=== PATIENT | male | born 1975 | race Two or more races ===

== ENCOUNTER 2019-05-03 08:13 | Emergency (ER) | payer OTHER ==
[~2019-05-03] VITALS: Ht 180.3 cm; Wt 140.6 kg
--- NOTE | 2019-05-03 09:04 | PHYS DOC ---
Past Medical History Past Medical History: Asthma, Diabetes-Type II, Hypertension, Renal Failure Adult General Chief Complaint Chief Complaint: DIALYSIS PROBLEM HPI HPI Patient is a 44 year old guarded male inmate with history of diabetes type 2, hypertension, asthma, end-stage kidney disease on dialysis Tuesday, , Tuesday last dialyzed on Tuesday who presents to the ED today complaining his dialysis catheter is not working, patient states they were getting ready to do h is dialysis today when they noted his catheter was not working. He has had the catheter 3 months. He states his potassium was 7.0 on Tuesday before he was dialyzed on Tuesday last week. Patient denies any other complaints. Review of Systems Review of Systems Constitutional: Denies fever or chills [] Eyes: Denies change in visual acuity, redness, or eye pain [] HENT: Denies nasal congestion or sore throat [] Respiratory: Denies cough or shortness of breath [] Cardiovascular: No additional information not addressed in HPI [] GI: Denies abdominal pain, nausea, vomiting, bloody stools or diarrhea [] : Denies dysuria or hematuria [] Musculoskeletal: Denies back pain or joint pain [] Integument: Denies rash or skin lesions [] Neurologic: Denies headache, focal weakness or sensory changes [] Endocrine: End-stage renal disease, dialysis catheter not working All other systems were reviewed and found to be within normal limits, except as documented in this note. Current Medications Current Medications Current Medications Medications (Trade) Dose Ordered Sig/Elena Start Time Stop Time Status Last Admin Dose Admin Calcium Gluconate (Calcium Gluconate) 1,000 mg 1X ONCE 05/03/19 10:45 05/03/19 10:46 DC 05/03/19 11:03 1,000 MG Dextrose (Dextrose 50%-Water Syringe) 25 gm 1X ONCE 05/03/19 10:45 05/03/19 10:46 DC 05/03/19 11:04 25 GM Insulin Human Regular (HumuLIN R VIAL) 10 unit 1X ONCE 05/03/19 10:45 05/03/19 10:46 DC 05/03/19 11:05 10 UNIT Sodium Bicarbonate (Sodium Bicarb Adult 8.4% Syr) 50 meq 1X ONCE 05/03/19 10:45 05/03/19 10:46 DC 05/03/19 11:04 50 MEQ Allergies Allergies Allergies Coded Allergies Type Severity Reaction Last Updated Verified No Known Drug Allergies 05/03/19 No Physical Exam Physical Exam Constitutional: Well developed, well nourished, no acute distress, non-toxic appearance. [] HENT: Normocephalic, atraumatic, bilateral external ears normal, oropharynx moist, no oral exudates, nose normal. [] Eyes: PERRLA, EOMI, conjunctiva normal, no discharge. [] Neck: Normal range of motion, no tenderness, supple, no stridor. [] Cardiovascular:Heart rate regular rhythm, no murmur [] Right upper chest with the dialysis catheter. No signs of infection around the catheter site. Lungs & Thorax: Bilateral breath sounds clear to auscultation [] Abdomen: Bowel sounds normal, soft, no tenderness, no masses, no pulsatile masses. [] Skin: Warm, dry, no erythema, no rash. [] Back: No tenderness, no CVA tenderness. [] Extremities: No tenderness, no cyanosis, no clubbing, ROM intact, no edema. [] Neurologic: Alert and oriented X 3, normal motor function, normal sensory function, no focal deficits noted. [] Psychologic: Affect normal, judgement normal, mood normal. [] Current Patient Data Vital Signs Vital Signs Date Time Temp Pulse Resp B/P (MAP) Pulse Ox O2 Delivery O2 Flow Rate FiO2 05/03/19 08:52 97.5 90 20 199/105 (136) 98 Room Air 97.5 Lab Values Laboratory Tests Test 05/03/19 09:25 White Blood Count 6.7 x10^3/uL (4.0-11.0) Red Blood Count 4.12 x10^6/uL (4.30-5.70) L Hemoglobin 10.4 g/dL (13.0-17.5) L Hematocrit 32.3 % (39.0-53.0) L Mean Corpuscular Volume 78 fL (79-100) L Mean Corpuscular Hemoglobin 25 pg (25-35) Mean Corpuscular Hemoglobin Concent 32 g/dL (31-37) Red Cell Distribution Width 18.3 % (11.5-14.5) H Platelet Count 239 x10^3/uL (140-400) Neutrophils (%) (Auto) 65 % (31-73) Lymphocytes (%) (Auto) 22 % (24-48) L Monocytes (%) (Auto) 10 % (0-9) H Eosinophils (%) (Auto) 3 % (0-3) Basophils (%) (Auto) 1 % (0-3) Neutrophils # (Auto) 4.3 x10^3/uL (1.8-7.7) Lymphocytes # (Auto) 1.4 x10^3/uL (1.0-4.8) Monocytes # (Auto) 0.6 x10^3/uL (0.0-1.1) Eosinophils # (Auto) 0.2 x10^3/uL (0.0-0.7) Basophils # (Auto) 0.1 x10^3/uL (0.0-0.2) Sodium Level 142 mmol/L (136-145) Potassium Level 6.8 mmol/L (3.5-5.1) *H Chloride Level 105 mmol/L (98-107) Carbon Dioxide Level 25 mmol/L (21-32) Anion Gap 12 (6-14) Blood Urea Nitrogen 87 mg/dL (8-26) H Creatinine 9.7 mg/dL (0.7-1.3) H Estimated GFR (Cockcroft-Gault) 5.9 BUN/Creatinine Ratio 9 (6-20) Glucose Level 100 mg/dL (70-99) H Calcium Level 8.5 mg/dL (8.5-10.1) Total Bilirubin 0.3 mg/dL (0.2-1.0) Aspartate Amino Transferase (AST) 14 U/L (15-37) L Alanine Aminotransferase (ALT) 23 U/L (16-63) Alkaline Phosphatase 87 U/L (46-116) Total Protein 7.8 g/dL (6.4-8.2) Albumin 3.8 g/dL (3.4-5.0) Albumin/Globulin Ratio 1.0 (1.0-1.7) Laboratory Tests 05/03/19 09:25 Laboratory Tests 05/03/19 09:25 EKG EKG [address] Coffman sinus rhythm HR 90 with slightly peaked T waves on V4, V5, V6 and lead III, no STEMI[] Radiology/Procedures Radiology/Procedures [] Course & Med Decision Making Course & Med Decision Making Pertinent Labs and Imaging studies reviewed. (See chart for details) This is a 44-year-old male patient presenting to the ED today complaining of his dialysis catheter not working. CBC within acute findings, CMP with potassium of 6.8, creatinine consistent with renal failure. Patient was last dialyzed on Tuesday this week. 1032 Dr. Poole came and saw patient in the Ed. [address] Pereira who accepted patient for admission. I have attempted to call interventional radiology a couple times with no one picking up the phone. [facility] to look [facility] Dragon Disclaimer Dragon Disclaimer This electronic medical record was generated, in whole or in part, using a voice recognition dictation system. Departure Departure Impression: Primary Impression: ESRD (end stage renal disease) on dialysis Additional Impression: Hyperkalemia Disposition: ADMITTED INPATIENT Condition: STABLE Referrals: UNKNOWN PCP NAME (PCP) Problem Qualifiers LACIE HARRISON APRN May 03, 2019 09:04
--- NOTE | 2019-05-03 09:13 | EKG ---
[facility] [address] [place] [address] Test Date: 2019-05-03 Test Time: 09:05:02 Pat Name: LISBET ADAMS Department: Room: Gender: M Spinner Hand: : 1975 Requested By: LACIE HARRISON Order Number: [id number] Reading MD: Dk Garcia MD Measurements Intervals Anita Rate: 89 P: -23 SD: 140 QRS: -6 QRSD: 100 T: 30 QT: 340 QTc: 419 Interpretive Statements SINUS RHYTHM Electronically Signed On 05-14-2019 14:33:58 CDT by Dk Garcia MD
[2019-05-03 09:41] LABS: BASO # 0.1 x10^3/uL (0.0-0.2); BASO % 1 % (0-3); EOS # 0.2 x10^3/uL (0.0-0.7); EOS % 3 % (0-3); HEMATOCRIT 32.3 % (39.0-53.0); HEMOGLOBIN 10.4 g/dL (13.0-17.5); LYMPH # 1.4 x10^3/uL (1.0-4.8); LYMPH % 22 % (24-48); MEAN CORPUSCULAR HEMOGLOBIN 25 pg (25-35); MEAN CORPUSCULAR HGB CONC 32 g/dL (31-37); MEAN CORPUSCULAR VOLUME 78 fL (79-100); MONO # 0.6 x10^3/uL (0.0-1.1); MONO % 10 % (0-9); NEUT # 4.3 x10^3/uL (1.8-7.7); NEUT % 65 % (31-73); PLATELET COUNT 239 x10^3/uL (140-400); RED BLOOD COUNT 4.12 x10^6/uL (4.30-5.70); RED CELL DISTRIBUTION WIDTH 18.3 % (11.5-14.5); WHITE BLOOD COUNT 6.7 x10^3/uL (4.0-11.0)
[2019-05-03 09:53] LABS: ALBUMIN 3.8 g/dL (3.4-5.0); CALCIUM 8.5 mg/dL (8.5-10.1); CREATININE 9.7 mg/dL (0.7-1.3); GFR 5.9; TOTAL BILIRUBIN 0.3 mg/dL (0.2-1.0); TOTAL PROTEIN 7.8 g/dL (6.4-8.2)
[2019-05-03 09:55] LABS: POTASSIUM 6.8 mmol/L (3.5-5.1)
[2019-05-03] MEDS ORDERED: INSULIN REGULAR 100 UNIT/ML 3ML VIAL. IV ONE (10:45)
[2019-05-03] MEDS ORDERED: SODIUM BICARB ADULT 8.4% 50 MEQ/50 ML DISP.SYRIN. IV ONE (10:45)
[2019-05-03] MEDS ORDERED: CALCIUM GLUCONATE 1,000 MG/10 ML VIAL. IVP ONE (10:45)
[2019-05-03] MEDS ORDERED: DEXTROSE 50% 25 GM / 50ML DISP.SYRIN. IV ONE (10:45)
--- NOTE | 2019-05-03 11:22 | RAD ---
CHEST AP ONLY Clinical Indication: Nonfunctioning dialysis catheter Comparison: None. Findings: Portable upright frontal view chest was obtained. Right internal jugular dialysis catheter is overlying the superior cavoatrial junction. The cardiomediastinal silhouette is normal. Lungs are clear. There is no pneumothorax. No pleural effusion is appreciated. No acute bone abnormality. IMPRESSION: No acute cardiopulmonary process. Electronically signed by: Stef Betts MD (05/03/2019 11:19 AM) [facility]
[2019-05-03] MEDS ORDERED: ACETAMINOPHEN 500 MG TABLET PO PRN (11:45)
[2019-05-03] MEDS ORDERED: hydrALAZINE 20 MG/ML VIAL. IVP PRN (11:45)
[2019-05-03] MEDS ORDERED: MORPHINE SULFATE 2 MG/ML VIAL. IV PRN (11:45)
[2019-05-03] MEDS ORDERED: ONDANSETRON PF 4 MG/2 ML VIAL. IV PRN ×2 (11:45→12:45)
[2019-05-03] MEDS ORDERED: ACETAMINOPHEN/CODEINE 300/30MG TABLET. PO PRN (11:45)
[2019-05-03 11:54] LABS: PROTHROMBIN TIME PATIENT 12.5 SEC (11.7-14.0)
--- NOTE | 2019-05-03 12:36 | PDOC2 ---
CONSULT Date of Consult Date of Consult DATE: 05/03/19 TIME: 12:31 Reason for Consult Reason for Consult: HIGH K AND ESRD Referring Physician Referring Physician: RYDER Identification/Chief Complaint Chief Complaint NON FUNCTIONING DIALYSIS CATHETER Source Source: Chart review, Patient History of Present Illness Reason for Visit: THIS IS A 44 YR OLD ESRD PT WHO RESIDES AT THE [facility]. HE IS NOTED TO HAVE A NON FUNCTIONING DIALYSIS CATHETER. HIS K IS 6.8. HE IS UNABLE TO HAVE IS HD AND WAS SENT TO ER. HE HAS A FAILED LEFT FA AV ACCESS IN THE PAST AND NOW HAS A NEW ONE IN THE LEFT UPPER ARM BUT IT IS NOT MATURE AND IT IS DEEP. HE HAS BEEN ON HD FOR ABOUT 6 MONTHS. HIS ESRD IS DUE TO DM II AND HTN. LABS ARE C/W ESRD Past Medical History Cardiovascular: HTN, Hyperlipidemia GI: Constipation Heme/Onc: Anemia NOS Renal/: Chronic renal failure Endocrine: Diabetes, Hyperparathyroidism Past Surgical History Past Surgical History RIGHT TDC AND LEFT ARM AVF Current Problem List Problem List Problems Medical Problems: (1) ESRD (end stage renal disease) on dialysis Status: Acute (2) Hyperkalemia Status: Acute Current Medications Current Medications Current Medications Calcium Gluconate (Calcium Gluconate) 1,000 mg 1X ONCE IVP Last administered on 05/03/19at 11:03; Start 05/03/19 at 10:45; Stop 05/03/19 at 10:46; Status DC Sodium Bicarbonate (Sodium Bicarb Adult 8.4% Syr) 50 meq 1X ONCE IV Last administered on 05/03/19at 11:04; Start 05/03/19 at 10:45; Stop 05/03/19 at 10:46; Status DC Dextrose (Dextrose 50%-Water Syringe) 25 gm 1X ONCE IV Last administered on 05/03/19at 11:04; Start 05/03/19 at 10:45; Stop 05/03/19 at 10:46; Status DC Insulin Human Regular (HumuLIN R VIAL) 10 unit 1X ONCE IV Last administered on 05/03/19at 11:05; Start 05/03/19 at 10:45; Stop 05/03/19 at 10:46; Status DC Hydralazine HCl (Apresoline Inj) 10 mg PRN Q4HRS PRN IVP ELEVATED BP, SEE COMMENTS; Start 05/03/19 at 11:45 Acetaminophen (Tylenol) 500 mg PRN Q6HRS PRN PO MILD PAIN / TEMP; Start 05/03/19 at 11:45 Acetaminophen/ Codeine Phosphate (Tylenol #3) 1 tab PRN Q6HRS PRN PO PAIN; Start 05/03/19 at 11:45 Morphine Sulfate (Morphine Sulfate) 2 mg PRN Q2HR PRN IV PAIN; Start 05/03/19 at 11:45 Ondansetron HCl (Zofran) 4 mg PRN Q6HRS PRN IV NAUSEA/VOMITING; Start 05/03/19 at 11:45 Allergies Allergies: Coded Allergies: No Known Drug Allergies (Unverified , 05/03/19) ROS Review of System FULL ROS DONE. HE DID NOT HAVE ANY COMPLAINTS Physical Exam General: Alert, Oriented X3, Cooperative, No acute distress HEENT: Atraumatic, PERRLA Lungs: Clear to auscultation Heart: Regular rate, Normal S1, Normal S2 Abdomen: Normal bowel sounds, Soft, No tenderness Extremities: No clubbing Skin: No breakdown Neuro: Normal speech, Sensation intact Psych/Mental Status: Mental status NL, Mood NL MUSCULOSKELETAL: No joint tenderness, No deformity, No swelling Vitals VITALS Vital Signs Date Time Temp Pulse Resp B/P (MAP) Pulse Ox O2 Delivery O2 Flow Rate FiO2 05/03/19 08:52 97.5 90 20 199/105 (136) 98 Room Air 97.5 Labs Labs Laboratory Tests Test 05/03/19 09:25 05/03/19 11:20 White Blood Count 6.7 x10^3/uL (4.0-11.0) Red Blood Count 4.12 x10^6/uL (4.30-5.70) Hemoglobin 10.4 g/dL (13.0-17.5) Hematocrit 32.3 % (39.0-53.0) Mean Corpuscular Volume 78 fL (79-100) Mean Corpuscular Hemoglobin 25 pg (25-35) Mean Corpuscular Hemoglobin Concent 32 g/dL (31-37) Red Cell Distribution Width 18.3 % (11.5-14.5) Platelet Count 239 x10^3/uL (140-400) Neutrophils (%) (Auto) 65 % (31-73) Lymphocytes (%) (Auto) 22 % (24-48) Monocytes (%) (Auto) 10 % (0-9) Eosinophils (%) (Auto) 3 % (0-3) Basophils (%) (Auto) 1 % (0-3) Neutrophils # (Auto) 4.3 x10^3/uL (1.8-7.7) Lymphocytes # (Auto) 1.4 x10^3/uL (1.0-4.8) Monocytes # (Auto) 0.6 x10^3/uL (0.0-1.1) Eosinophils # (Auto) 0.2 x10^3/uL (0.0-0.7) Basophils # (Auto) 0.1 x10^3/uL (0.0-0.2) Sodium Level 142 mmol/L (136-145) Potassium Level 6.8 mmol/L (3.5-5.1) Chloride Level 105 mmol/L (98-107) Carbon Dioxide Level 25 mmol/L (21-32) Anion Gap 12 (6-14) Blood Urea Nitrogen 87 mg/dL (8-26) Creatinine 9.7 mg/dL (0.7-1.3) Estimated GFR (Cockcroft-Gault) 5.9 BUN/Creatinine Ratio 9 (6-20) Glucose Level 100 mg/dL (70-99) Calcium Level 8.5 mg/dL (8.5-10.1) Total Bilirubin 0.3 mg/dL (0.2-1.0) Aspartate Amino Transf (AST/SGOT) 14 U/L (15-37) Alanine Aminotransferase (ALT/SGPT) 23 U/L (16-63) Alkaline Phosphatase 87 U/L (46-116) Total Protein 7.8 g/dL (6.4-8.2) Albumin 3.8 g/dL (3.4-5.0) Albumin/Globulin Ratio 1.0 (1.0-1.7) Prothrombin Time 12.5 SEC (11.7-14.0) Prothromb Time International Ratio 1.0 (0.8-1.1) Laboratory Tests Test 05/03/19 09:25 05/03/19 11:20 White Blood Count 6.7 x10^3/uL (4.0-11.0) Red Blood Count 4.12 x10^6/uL (4.30-5.70) Hemoglobin 10.4 g/dL (13.0-17.5) Hematocrit 32.3 % (39.0-53.0) Mean Corpuscular Volume 78 fL (79-100) Mean Corpuscular Hemoglobin 25 pg (25-35) Mean Corpuscular Hemoglobin Concent 32 g/dL (31-37) Red Cell Distribution Width 18.3 % (11.5-14.5) Platelet Count 239 x10^3/uL (140-400) Neutrophils (%) (Auto) 65 % (31-73) Lymphocytes (%) (Auto) 22 % (24-48) Monocytes (%) (Auto) 10 % (0-9) Eosinophils (%) (Auto) 3 % (0-3) Basophils (%) (Auto) 1 % (0-3) Neutrophils # (Auto) 4.3 x10^3/uL (1.8-7.7) Lymphocytes # (Auto) 1.4 x10^3/uL (1.0-4.8) Monocytes # (Auto) 0.6 x10^3/uL (0.0-1.1) Eosinophils # (Auto) 0.2 x10^3/uL (0.0-0.7) Basophils # (Auto) 0.1 x10^3/uL (0.0-0.2) Sodium Level 142 mmol/L (136-145) Potassium Level 6.8 mmol/L (3.5-5.1) Chloride Level 105 mmol/L (98-107) Carbon Dioxide Level 25 mmol/L (21-32) Anion Gap 12 (6-14) Blood Urea Nitrogen 87 mg/dL (8-26) Creatinine 9.7 mg/dL (0.7-1.3) Estimated GFR (Cockcroft-Gault) 5.9 BUN/Creatinine Ratio 9 (6-20) Glucose Level 100 mg/dL (70-99) Calcium Level 8.5 mg/dL (8.5-10.1) Total Bilirubin 0.3 mg/dL (0.2-1.0) Aspartate Amino Transf (AST/SGOT) 14 U/L (15-37) Alanine Aminotransferase (ALT/SGPT) 23 U/L (16-63) Alkaline Phosphatase 87 U/L (46-116) Total Protein 7.8 g/dL (6.4-8.2) Albumin 3.8 g/dL (3.4-5.0) Albumin/Globulin Ratio 1.0 (1.0-1.7) Prothrombin Time 12.5 SEC (11.7-14.0) Prothromb Time International Ratio 1.0 (0.8-1.1) Assessment/Plan Assessment/Plan IMP HYPERKALEMIA ESRD NON FUNCTIONING DIALYSIS CATHETER DM II HTN ANEMIA PLAN TEMPORIZING MEASURES FOR HIGH K WILL HAVE IR PLACE NEW TUNNELED HD CATHETER WILL HAVE HD DONE AFTERWARDS AND UF TO DW WITH A LOW K BATH START ARANESP WILL FOLLOW D/W ER AND IR AMY HAMM MD May 03, 2019 12:36
[2019-05-03] MEDS ORDERED: DEXTROSE 50% 25 GM / 50ML DISP.SYRIN. IV PRN (12:45)
[2019-05-03] MEDS ORDERED: MORPHINE SULFATE 4 MG/ML VIAL. IV PRN (12:45)
[2019-05-03] MEDS ORDERED: DEXTROSE ORAL GEL 15 GM TUBE. PO PRN (12:45)
[2019-05-03] MEDS ORDERED: IV DEXTROSE 5% 250 ML BAG. IV PRN (12:45)
--- NOTE | 2019-05-03 13:20 | PDOC1 ---
History and Physical Date of Admission Date of Admission DATE: 05/03/19 TIME: 13:14 Identification/Chief Complaint Chief Complaint clotted HD cath Source Source: Caregiver, Chart review, Patient History of Present Illness History of Present Illness 44 AA obese, incarcerated male, ESRD x 10 mos now, TTHS, has a rt tunneled HD cath x 3 mos now, and HD had difficulty accessing today, HE had similar issue with his first tunneled HD cath that lasted 6 mos, HE is ESRD bec of hTN and DM on lantus 5 BID and claims BS now is 50s. GOt dextrose etc, CReat 9, K 6. IR and renal consulted, HE has a left arm AV fistula that "they are still working on". I told him to be NPO Guard at bedside Past Medical History Cardiovascular: HTN, Hyperlipidemia GI: Constipation Heme/Onc: Anemia NOS Renal/: Chronic renal failure Endocrine: Diabetes, Hyperparathyroidism Past Surgical History Past Surgical History: Other (AV fistula creation left arm, clotted HD fistula mos ago) Family History Family History: High Cholestrol, Hypertension Social History Smoke: No ALCOHOL: none Drugs: None Current Problem List Problem List Problems Medical Problems: (1) ESRD (end stage renal disease) on dialysis Status: Acute (2) Hyperkalemia Status: Acute Current Medications Current Medications Current Medications Calcium Gluconate (Calcium Gluconate) 1,000 mg 1X ONCE IVP Last administered on 05/03/19at 11:03; Start 05/03/19 at 10:45; Stop 05/03/19 at 10:46; Status DC Sodium Bicarbonate (Sodium Bicarb Adult 8.4% Syr) 50 meq 1X ONCE IV Last administered on 05/03/19at 11:04; Start 05/03/19 at 10:45; Stop 05/03/19 at 10:46; Status DC Dextrose (Dextrose 50%-Water Syringe) 25 gm 1X ONCE IV Last administered on 05/03/19at 11:04; Start 05/03/19 at 10:45; Stop 05/03/19 at 10:46; Status DC Insulin Human Regular (HumuLIN R VIAL) 10 unit 1X ONCE IV Last administered on 05/03/19at 11:05; Start 05/03/19 at 10:45; Stop 05/03/19 at 10:46; Status DC Hydralazine HCl (Apresoline Inj) 10 mg PRN Q4HRS PRN IVP ELEVATED BP, SEE COMMENTS; Start 05/03/19 at 11:45 Acetaminophen (Tylenol) 500 mg PRN Q6HRS PRN PO MILD PAIN / TEMP; Start 05/03/19 at 11:45 Acetaminophen/ Codeine Phosphate (Tylenol #3) 1 tab PRN Q6HRS PRN PO PAIN; Start 05/03/19 at 11:45 Morphine Sulfate (Morphine Sulfate) 2 mg PRN Q2HR PRN IV PAIN; Start 05/03/19 at 11:45 Ondansetron HCl (Zofran) 4 mg PRN Q6HRS PRN IV NAUSEA/VOMITING; Start 05/03/19 at 11:45 Glucose (Insta-Glucose) 15 gm PRN Q15MIN PRN PO LOW BLOOD SUGAR Last administered on 05/03/19at 12:48; Start 05/03/19 at 12:45 Ondansetron HCl (Zofran) 4 mg PRN Q8HRS PRN IV NAUSEA/VOMITING; Start 05/03/19 at 12:45; Stop 05/04/19 at 12:44; Status UNV Morphine Sulfate (Morphine Sulfate) 4 mg PRN Q2HR PRN IV PAIN; Start 05/03/19 at 12:45; Stop 05/03/19 at 23:00 Dextrose (Dextrose 50%-Water Syringe) 12.5 gm PRN Q15MIN PRN IV SEE COMMENTS; Start 05/03/19 at 12:45 Dextrose 250 ml PRN Q15MIN PRN IV SEE COMMENTS; Start 05/03/19 at 12:45 Allergies Allergies: Coded Allergies: No Known Drug Allergies (Unverified , 05/03/19) ROS Review of System no pain, hungry, all else 14 pt neg Physical Exam General: Alert, Oriented X3, Cooperative, No acute distress, Other (morbidly obese, NAD, tunneled HD cath rt subclavian) HEENT: Atraumatic, PERRLA, EOMI Lungs: Other (dec BS sec to inc AP diam) Heart: S1S2, RRR, no thrills, no rubs, no gallops, no murmurs, murmurs, no jug vein distention Cardiovascular: S1, S2 Rectal Exam: not examined PELVIC: Nml ext genitalia Extremities: No clubbing, No cyanosis, No edema, Normal pulses, No tenderness/swelling Skin: No rashes, No breakdown, No significant lesion Neuro: Normal gait, Normal speech, Strength at 5/5 X4 ext, Normal tone, Sensation intact, Cranial nerves 3-12 NL, Reflexes 2+ Psych/Mental Status: Mental status NL, Mood NL Vitals Vitals Vital Signs Date Time Temp Pulse Resp B/P (MAP) Pulse Ox O2 Delivery O2 Flow Rate FiO2 05/03/19 08:52 97.5 90 20 199/105 (136) 98 Room Air 97.5 Labs Labs Laboratory Tests Test 05/03/19 09:25 05/03/19 11:20 05/03/19 12:39 White Blood Count 6.7 x10^3/uL (4.0-11.0) Red Blood Count 4.12 x10^6/uL (4.30-5.70) Hemoglobin 10.4 g/dL (13.0-17.5) Hematocrit 32.3 % (39.0-53.0) Mean Corpuscular Volume 78 fL (79-100) Mean Corpuscular Hemoglobin 25 pg (25-35) Mean Corpuscular Hemoglobin Concent 32 g/dL (31-37) Red Cell Distribution Width 18.3 % (11.5-14.5) Platelet Count 239 x10^3/uL (140-400) Neutrophils (%) (Auto) 65 % (31-73) Lymphocytes (%) (Auto) 22 % (24-48) Monocytes (%) (Auto) 10 % (0-9) Eosinophils (%) (Auto) 3 % (0-3) Basophils (%) (Auto) 1 % (0-3) Neutrophils # (Auto) 4.3 x10^3/uL (1.8-7.7) Lymphocytes # (Auto) 1.4 x10^3/uL (1.0-4.8) Monocytes # (Auto) 0.6 x10^3/uL (0.0-1.1) Eosinophils # (Auto) 0.2 x10^3/uL (0.0-0.7) Basophils # (Auto) 0.1 x10^3/uL (0.0-0.2) Sodium Level 142 mmol/L (136-145) Potassium Level 6.8 mmol/L (3.5-5.1) Chloride Level 105 mmol/L (98-107) Carbon Dioxide Level 25 mmol/L (21-32) Anion Gap 12 (6-14) Blood Urea Nitrogen 87 mg/dL (8-26) Creatinine 9.7 mg/dL (0.7-1.3) Estimated GFR (Cockcroft-Gault) 5.9 BUN/Creatinine Ratio 9 (6-20) Glucose Level 100 mg/dL (70-99) Calcium Level 8.5 mg/dL (8.5-10.1) Total Bilirubin 0.3 mg/dL (0.2-1.0) Aspartate Amino Transf (AST/SGOT) 14 U/L (15-37) Alanine Aminotransferase (ALT/SGPT) 23 U/L (16-63) Alkaline Phosphatase 87 U/L (46-116) Total Protein 7.8 g/dL (6.4-8.2) Albumin 3.8 g/dL (3.4-5.0) Albumin/Globulin Ratio 1.0 (1.0-1.7) Prothrombin Time 12.5 SEC (11.7-14.0) Prothromb Time International Ratio 1.0 (0.8-1.1) Glucose (Fingerstick) 59 mg/dL (70-99) Laboratory Tests Test 05/03/19 09:25 05/03/19 11:20 05/03/19 12:39 White Blood Count 6.7 x10^3/uL (4.0-11.0) Red Blood Count 4.12 x10^6/uL (4.30-5.70) Hemoglobin 10.4 g/dL (13.0-17.5) Hematocrit 32.3 % (39.0-53.0) Mean Corpuscular Volume 78 fL (79-100) Mean Corpuscular Hemoglobin 25 pg (25-35) Mean Corpuscular Hemoglobin Concent 32 g/dL (31-37) Red Cell Distribution Width 18.3 % (11.5-14.5) Platelet Count 239 x10^3/uL (140-400) Neutrophils (%) (Auto) 65 % (31-73) Lymphocytes (%) (Auto) 22 % (24-48) Monocytes (%) (Auto) 10 % (0-9) Eosinophils (%) (Auto) 3 % (0-3) Basophils (%) (Auto) 1 % (0-3) Neutrophils # (Auto) 4.3 x10^3/uL (1.8-7.7) Lymphocytes # (Auto) 1.4 x10^3/uL (1.0-4.8) Monocytes # (Auto) 0.6 x10^3/uL (0.0-1.1) Eosinophils # (Auto) 0.2 x10^3/uL (0.0-0.7) Basophils # (Auto) 0.1 x10^3/uL (0.0-0.2) Sodium Level 142 mmol/L (136-145) Potassium Level 6.8 mmol/L (3.5-5.1) Chloride Level 105 mmol/L (98-107) Carbon Dioxide Level 25 mmol/L (21-32) Anion Gap 12 (6-14) Blood Urea Nitrogen 87 mg/dL (8-26) Creatinine 9.7 mg/dL (0.7-1.3) Estimated GFR (Cockcroft-Gault) 5.9 BUN/Creatinine Ratio 9 (6-20) Glucose Level 100 mg/dL (70-99) Calcium Level 8.5 mg/dL (8.5-10.1) Total Bilirubin 0.3 mg/dL (0.2-1.0) Aspartate Amino Transf (AST/SGOT) 14 U/L (15-37) Alanine Aminotransferase (ALT/SGPT) 23 U/L (16-63) Alkaline Phosphatase 87 U/L (46-116) Total Protein 7.8 g/dL (6.4-8.2) Albumin 3.8 g/dL (3.4-5.0) Albumin/Globulin Ratio 1.0 (1.0-1.7) Prothrombin Time 12.5 SEC (11.7-14.0) Prothromb Time International Ratio 1.0 (0.8-1.1) Glucose (Fingerstick) 59 mg/dL (70-99) VTE Prophylaxis Ordered VTE Prophylaxis Devices: Yes VTE Pharmacological Prophylaxi: Yes Assessment/Plan Assessment/Plan 1. Clotted HD cath 2. Obesity 3, HTN, DM with hypogylycemia 4. ESRD TTHS PLAn: NPO, IR, renal consults HOld aston Awaiting home meds FULL CODE back to half-way on dc Dextrose prn seen at ER OBS ARUNA SOLER MD May 03, 2019 13:19
[2019-05-03] MEDS ORDERED: LIDOCAINE 1%/EPI 1:100,000 20 ML VIAL. ONE (13:44)
[2019-05-03] MEDS ORDERED: IV DEXTROSE 5% 500 ML IV STA (13:46)
[2019-05-03] MEDS ORDERED: MIDAZOLAM HCL/PF 2 MG/2 ML VIAL. ONE (14:28)
[2019-05-03] MEDS ORDERED: ceFAZolin 1GM IVPB FOR OMNI 100 ML IV ONE (14:28)
[2019-05-03] MEDS ORDERED: fentaNYL PF VIAL 100 MCG/2 ML VIAL ONE (14:29)
[2019-05-03] MEDS ORDERED: IV NORMAL SALINE 1000ML BAG 1,000 ML IV PRN ×2 (14:42)
[2019-05-03] MEDS ORDERED: MIDAZOLAM HCL/PF 2 MG/2 ML VIAL. IV ONE (14:45)
[2019-05-03] MEDS ORDERED: DIALYSIS PATIENT. MC PRN ×2 (14:45)
[2019-05-03] MEDS ORDERED: LIDOCAINE 1%/EPI 1:100,000 20 ML VIAL. INJ ONE (14:45)
[2019-05-03] MEDS ORDERED: fentaNYL PF VIAL 100 MCG/2 ML VIAL IV ONE (14:45)
[2019-05-03 14:51] VITALS: BP 144/70
--- NOTE | 2019-05-03 14:53 | PDOC3 ---
Discharge Summary Visit Information Date of Admission: May 03, 2019 Date of Discharge: May 03, 2019 Admitting Diagnosis Comment: s/p clotted HD cath - replaced with new one (05/03) ESRD TTHSAt HD HTN, DM 2 Final Diagnosis Problems Medical Problems: (1) ESRD (end stage renal disease) on dialysis Status: Acute (2) Hyperkalemia Status: Acute Brief Hospital Course Allergies Allergies Coded Allergies Type Severity Reaction Last Updated Verified No Known Drug Allergies 05/03/19 No Vital Signs Vital Signs Date Time Temp Pulse Resp B/P (MAP) Pulse Ox O2 Delivery O2 Flow Rate FiO2 05/03/19 08:52 97.5 90 20 199/105 (136) 98 Room Air 97.5 Lab Results Laboratory Tests Test 05/03/19 09:25 05/03/19 11:20 05/03/19 12:39 05/03/19 13:30 White Blood Count 6.7 x10^3/uL (4.0-11.0) Red Blood Count 4.12 x10^6/uL (4.30-5.70) Hemoglobin 10.4 g/dL (13.0-17.5) Hematocrit 32.3 % (39.0-53.0) Mean Corpuscular Volume 78 fL (79-100) Mean Corpuscular Hemoglobin 25 pg (25-35) Mean Corpuscular Hemoglobin Concent 32 g/dL (31-37) Red Cell Distribution Width 18.3 % (11.5-14.5) Platelet Count 239 x10^3/uL (140-400) Neutrophils (%) (Auto) 65 % (31-73) Lymphocytes (%) (Auto) 22 % (24-48) Monocytes (%) (Auto) 10 % (0-9) Eosinophils (%) (Auto) 3 % (0-3) Basophils (%) (Auto) 1 % (0-3) Neutrophils # (Auto) 4.3 x10^3/uL (1.8-7.7) Lymphocytes # (Auto) 1.4 x10^3/uL (1.0-4.8) Monocytes # (Auto) 0.6 x10^3/uL (0.0-1.1) Eosinophils # (Auto) 0.2 x10^3/uL (0.0-0.7) Basophils # (Auto) 0.1 x10^3/uL (0.0-0.2) Sodium Level 142 mmol/L (136-145) Potassium Level 6.8 mmol/L (3.5-5.1) Chloride Level 105 mmol/L (98-107) Carbon Dioxide Level 25 mmol/L (21-32) Anion Gap 12 (6-14) Blood Urea Nitrogen 87 mg/dL (8-26) Creatinine 9.7 mg/dL (0.7-1.3) Estimated GFR (Cockcroft-Gault) 5.9 BUN/Creatinine Ratio 9 (6-20) Glucose Level 100 mg/dL (70-99) Calcium Level 8.5 mg/dL (8.5-10.1) Total Bilirubin 0.3 mg/dL (0.2-1.0) Aspartate Amino Transf (AST/SGOT) 14 U/L (15-37) Alanine Aminotransferase (ALT/SGPT) 23 U/L (16-63) Alkaline Phosphatase 87 U/L (46-116) Total Protein 7.8 g/dL (6.4-8.2) Albumin 3.8 g/dL (3.4-5.0) Albumin/Globulin Ratio 1.0 (1.0-1.7) Prothrombin Time 12.5 SEC (11.7-14.0) Prothromb Time International Ratio 1.0 (0.8-1.1) Glucose (Fingerstick) 59 mg/dL (70-99) 87 mg/dL (70-99) Test 05/03/19 14:05 Glucose (Fingerstick) 89 mg/dL (70-99) Laboratory Tests Test 05/03/19 09:25 05/03/19 11:20 05/03/19 12:39 05/03/19 13:30 White Blood Count 6.7 x10^3/uL (4.0-11.0) Red Blood Count 4.12 x10^6/uL (4.30-5.70) Hemoglobin 10.4 g/dL (13.0-17.5) Hematocrit 32.3 % (39.0-53.0) Mean Corpuscular Volume 78 fL (79-100) Mean Corpuscular Hemoglobin 25 pg (25-35) Mean Corpuscular Hemoglobin Concent 32 g/dL (31-37) Red Cell Distribution Width 18.3 % (11.5-14.5) Platelet Count 239 x10^3/uL (140-400) Neutrophils (%) (Auto) 65 % (31-73) Lymphocytes (%) (Auto) 22 % (24-48) Monocytes (%) (Auto) 10 % (0-9) Eosinophils (%) (Auto) 3 % (0-3) Basophils (%) (Auto) 1 % (0-3) Neutrophils # (Auto) 4.3 x10^3/uL (1.8-7.7) Lymphocytes # (Auto) 1.4 x10^3/uL (1.0-4.8) Monocytes # (Auto) 0.6 x10^3/uL (0.0-1.1) Eosinophils # (Auto) 0.2 x10^3/uL (0.0-0.7) Basophils # (Auto) 0.1 x10^3/uL (0.0-0.2) Sodium Level 142 mmol/L (136-145) Potassium Level 6.8 mmol/L (3.5-5.1) Chloride Level 105 mmol/L (98-107) Carbon Dioxide Level 25 mmol/L (21-32) Anion Gap 12 (6-14) Blood Urea Nitrogen 87 mg/dL (8-26) Creatinine 9.7 mg/dL (0.7-1.3) Estimated GFR (Cockcroft-Gault) 5.9 BUN/Creatinine Ratio 9 (6-20) Glucose Level 100 mg/dL (70-99) Calcium Level 8.5 mg/dL (8.5-10.1) Total Bilirubin 0.3 mg/dL (0.2-1.0) Aspartate Amino Transf (AST/SGOT) 14 U/L (15-37) Alanine Aminotransferase (ALT/SGPT) 23 U/L (16-63) Alkaline Phosphatase 87 U/L (46-116) Total Protein 7.8 g/dL (6.4-8.2) Albumin 3.8 g/dL (3.4-5.0) Albumin/Globulin Ratio 1.0 (1.0-1.7) Prothrombin Time 12.5 SEC (11.7-14.0) Prothromb Time International Ratio 1.0 (0.8-1.1) Glucose (Fingerstick) 59 mg/dL (70-99) 87 mg/dL (70-99) Test 05/03/19 14:05 Glucose (Fingerstick) 89 mg/dL (70-99) Brief Hospital Course Mr. Dinh is a 44 old [sex] who presented with [ ] History of Present Illness 44 AA obese, incarcerated male, ESRD x 10 mos now, TTHS, has a rt tunneled HD c ath x 3 mos now, and HD had difficulty accessing today, HE had similar issue with his first tunneled HD cath that lasted 6 mos, HE is ESRD bec of hTN and DM on lantus 5 BID and claims BS now is 50s. GOt dextrose etc, CReat 9, K 6. IR and renal consulted, HE has a left arm AV fistula that "they are still working on". I told him to be NPO Guard at bedside COURSe: IR replaced with new HD cath, getting HD later then dc back to detention later Dw Dr Poole and RN fabio Brush Discharge Information Condition at Discharge: Improved, Stable Disposition/Orders: Other (detention) ARUNA SOLER MD May 03, 2019 14:53
--- NOTE | 2019-05-04 12:47 | RAD ---
05/04/2019 10:42 AM Procedure: Replacement of an nonfunctional dialysis catheter Clinical Indication: Nonfunctional, clotted HD cath Discussion: The procedure was explained in its entirety to the patient or the patients designated solar sales representative by a member of the treatment team, including a discussion of the risks, benefits and commonly accepted alternatives to the procedure, as well as the expected consequences of no therapy whatsoever. Discussion of the risks included, but was not limited to, those that are most frequent and those that are rare but possibly severe or life-threatening, as well as the possibility of unforeseen complications. All elements of maximal sterile barrier technique including the use of a cap, mask, sterile gown, sterile gloves, large sterile sheet, appropriate hand hygiene, and 2% chlorhexidine for cutaneous antisepsis (or acceptable alternative antiseptic per current guidelines) were followed for this procedure. Fluoroscopic evaluation demonstrates the pre-existing catheter be somewhat short position. A guidewire was advanced through the pre-existing catheter into the IVC. The pacing catheter was removed over the wire and replaced the new 23 cm tipped cuff palindrome dialysis catheter. The catheter was found to flush and aspirate normally. The new catheter was secured in place. Sterile dressings were applied. No immediate complications were identified. Total fluoroscopy time: 0.4 min Dose area product 2: Gycm2 The procedures performed under conscious sedation including continuous cardiopulmonary monitoring via dedicated sedation nurse. [id number] sedation time: 15 minutes Impression: Replacement of right internal jugular tunneled hemodialysis catheter through pre-existing tract
== END 2019-05-03 14:00 ==
LOC: EEVIPCON 08:13 → ER 08:13 → UNDOADMIN 11:20 → ED HOLD 11:20
DX: T82.898A Other specified complication of vascular prosthetic devices, implants and grafts, initial encounter (principal); N18.6 End stage renal disease; I12.0 Hypertensive chronic kidney disease with stage 5 chronic kidney disease or end stage renal disease; E11.22 Type 2 diabetes mellitus with diabetic chronic kidney disease; E87.5 Hyperkalemia; Z99.2 Dependence on renal dialysis; Z79.4 Long term (current) use of insulin; J45.909 Unspecified asthma, uncomplicated; E11.649 Type 2 diabetes mellitus with hypoglycemia without coma; E66.9 Obesity, unspecified; Z68.41 Body mass index [BMI] 40.0-44.9, adult; Y82.8 Other medical devices associated with adverse incidents; Y92.89 Other specified places as the place of occurrence of the external cause
CPT/HCPCS: 36415; 36581; 71045; 77001; 80053; 82962; 84132; 85025; 85610; 86706; 87340; 93005; 96365; 96375; 96376; 99285; C1750; C1769; J0610; J0690; J1815; J2250; J3010; J3490; J7042; 99152